=== PATIENT | male | born 1975 | race American Indian/Alaskan Native ===

== ENCOUNTER 2021-02-25 09:16 | Emergency (ER) | payer MEDICARE ==
[2021-02-25 09:19] VITALS: BP 127/91
[2021-02-25] MEDS ORDERED: NEOMY 3.5 MG/BACIT 400 UNITS/POLY B 5000 UNITS/GM OINT PACKET TP ONE (09:26)
[2021-02-25] MEDS ORDERED: TETANUS,DIPH,PERTUSS(ACELL) VACCINE 0.5 ML SYRINGE IM ONE (09:26)
--- NOTE | 2021-02-25 10:07 | XRay Report ---
Right thumb 3 views INDICATION: Abrasion FINDINGS: MCP joints and IP joints appear normal. Diffuse soft tissue swelling is seen. No definite r adiopaque foreign body is seen however clinical correlation with area of abrasion and tenderness. No acute fracture Signer Name: Tarun Harris MD Signed: 02/25/2021 10:02 AM Workstation Name: [id number]
--- NOTE | 2021-02-25 10:17 | Emergency Department Report ---
ED Laceration HPI - HPI Chief Complaint: Wound/Laceration Stated Complaint: CUT ON RT THUMB Time Seen by Provider: 02/25/21 09:20 Occurred When: Today Location: Upper Extremity Severity: mild Tetanus Status: Not up to Date Laceration Symptoms: Yes Pain, No Foreign Body Sensation, No Numbness, No Weakness Other History: This is a 45-year-old male nontoxic, well nourished in appearance, no acute signs of distress presents to the ED with c/o of right thumb skin avulsion that occurred today prior to arrival. Patient stated that he was taking out the trash and was glass which caused the skin avulsion. Patient denies decreased sensation or range of motion. Patient stated bleeding is under control. Denies any numbness, tingling, fever, chills, nausea, vomiting, chest pain, shortness of breath, headache or stiff neck. Patient denies any allergies to significant past medical history. Patient stated that had last tetanus vaccine in 2008. ED Review of Systems ROS: Stated complaint: CUT ON RT THUMB Other details as noted in HPI Comment: All other systems reviewed and negative Constitutional: denies: chills, fever Eyes: denies: eye pain, eye discharge, vision change ENT: denies: ear pain, throat pain Respiratory: denies: cough, shortness of breath, wheezing Cardiovascular: denies: chest pain, palpitations Endocrine: no symptoms reported Gastrointestinal: denies: abdominal pain, nausea, diarrhea Genitourinary: denies: urgency, dysuria Musculoskeletal: denies: back pain, joint swelling, arthralgia Skin: denies: rash, lesions Neurological: denies: headache, weakness, paresthesias Psychiatric: denies: anxiety, depression Hematological/Lymphatic: denies: easy bleeding, easy bruising ED Past Medical Hx - Past Medical History Hx Hypertension: Yes Hx Psychiatric Treatment: Yes (IP and OP) Additional medical history: Bipolar, Schizophrenia - Social History Smoking Status: Never Smoker Substance Use Type: Alcohol, Prescribed - Medications Home Medications: Home Medications Medication Instructions Recorded Confirmed Last Taken Type diphenhydrAMINE [Benadryl CAP] 50 mg PO QHS 03/28/13 09/26/14 11/13/13 History Benztropine [Cogentin] 1 mg PO QHS 09/26/14 09/26/14 Unknown History Haloperidol Decanoate [Haldol 100 mg IM QMONTH 09/26/14 09/26/14 Unknown History Decanoate] Quetiapine Fumarate [QUEtiapine 600 mg PO QHS 09/26/14 09/26/14 Unknown History Fumarate] haloperidoL [Haldol] 5 mg PO QHS 09/26/14 09/26/14 Unknown History hydroCHLOROthiazide [HCTZ] 12.5 mg PO QDAY 09/26/14 09/26/14 Unknown History risperiDONE [RisperDAL] 2 mg PO BID tablet 09/27/14 Unknown Rx Clindamycin [Clindamycin CAP] 300 mg PO Q8H #20 cap 02/16/15 Unknown Rx Ibuprofen [Motrin] 800 mg PO Q8HR PRN #20 tablet 02/16/15 Unknown Rx Neomycin/Bacitracin/Polymyxinb 28.35 gm TP TID 7 Days #1 oint...g. 02/25/21 Unknown Rx [Triple Antibiotic Ointment] Laceration Physical Exam - Exam General: Vital signs noted. No distress. Alert and acting appropriately. Wound Length (cm): 1 (small suprifical skin avulsion to the distal right thumb) Laceration Location: Upper Extremity Laceration Exam: Yes Normal Distal CMS, No Foreign Body, No Exposed Tendon, Vessel, or Nerve, No Tendon Injury ED Course Vital Signs 02/25/21 09:18 Temperature 98.7 F Pulse Rate 75 Respiratory 19 Rate Blood Pressure 127/91 O2 Sat by Pulse 100 Oximetry - Reevaluation(s) Reevaluation #1: 02/25/21 10:18 Patient is speaking in full sentences with no signs of distress noted. ED Medical Decision Making - Radiology Data [facility] [address] [place] [address] XRay Report Signed Patient: ISAURA MORENO JR MR#: [id number] : 1975 Acct:[id number] Age/Sex: 45 / M ADM Date: 02/25/21 Loc: ED Attending Dr: Ordering Physician: BEV APODACA NP Date of Service: 02/25/21 Procedure(s): XR finger(s) 2+V RT Accession Number(s): [id number] cc: BEV APODACA NP Fluoro Time In Minutes: Right thumb 3 views INDICATION: Abrasion FINDINGS: MCP joints and IP joints appear normal. Diffuse soft tissue swelling is seen. No definite radiopaque foreign body is seen however clinical correlation with area of abrasion and tenderness. No acute fracture Signer Name: Tarun Harris MD Signed: 02/25/2021 10:02 AM Workstation Name: [id number] Transcribed By: CHEPE Dictated By: ALDA HARRIS MD Electronically Authenticated By: ALDA HARRIS MD Signed Date/Time: 02/25/21 1002 DD/ 1001 TD/TT: - Medical Decision Making This is a 45-year-old male that presents with skin avulsion. Patient is stable and was examined by me. The area has been cleaned and sterile dressing has been applied. Triple antibiotic ointment applied as well. A sterile dressing has been applied. Patient was educated on proper wound care. Patient is notified of the x-ray results with no questions noted by the patient. Patient also received a tetanus booster in ER. Patient was instructed to refer to Follow-up with a primary care doctor in 3-5 days or if symptoms worsen and continue return to emergency room as soon as possible. At time of discharge, the patient does not seem toxic or ill in appearance. No acute signs of distress noted. Patient agrees to discharge treatment plan of care. No further questions noted by the patient. Critical care attestation.: If time is entered above; I have spent that time in minutes in the direct care of this critically ill patient, excluding procedure time. ED Disposition Clinical Impression: Avulsion, skin Disposition: 01 HOME / SELF CARE / HOMELESS Is pt being admited?: No Does the pt Need Aspirin: No Condition: Stable Instructions: Wound Care, Adult Additional Instructions: Follow-up with a primary care doctor in 3-5 days or if symptoms worsen and continue return to emergency room as soon as possible. Prescriptions: Neomycin/Bacitracin/Polymyxinb [Triple Antibiotic Ointment] 28.35 gm TP TID 7 Days #1 oint...g. Referrals: DEBBIE ROSE MD [Referring] - 3-5 Days LORRAINE HOROWITZ MD [Staff Physician] - 3-5 Days Forms: Work/School Release Form(ED) Time of Disposition: 10:33
== END 2021-02-25 10:41 | disposition home or self-care (01) ==
LOC: ED 09:16
DX: S61.011A Laceration without foreign body of right thumb without damage to nail, initial encounter (principal); I10 Essential (primary) hypertension; F20.9 Schizophrenia, unspecified; F31.9 Bipolar disorder, unspecified; W26.0XXA Contact with knife, initial encounter; Y93.89 Activity, other specified; Y92.89 Other specified places as the place of occurrence of the external cause; Y99.8 Other external cause status
CPT/HCPCS: 73140; 90471; 90715; 99283; A6250